=== PATIENT | female | born 1970 | race Two or more races ===

== ENCOUNTER 2024-04-13 12:25 | Emergency (ER) | payer MEDICAID, SELFPAY ==
[2024-04-13 12:28] VITALS: BMI 32.9
[2024-04-13 13:04] VITALS: BP 152/93; PULSE 107; RESP 18; TEMP 36.6; O2SAT 97; BMI 30.7
--- NOTE | 2024-04-13 13:05 | XR_ITS ---
Examination: Duplex scan of the lower extremity, unilateral left complete Date and time of exam: April 13, 2024 1342 hours INDICATIONS: Left leg pain 2 months worse the last 2 days Technique: Duplex scan of the extremity veins using B-mode/grayscale imaging and Doppler spectral analysis and color flow Attention is directed to internal echogenicity, compression and augmentation involving these veins, color flow assessment, spectral analysis Findings: Major deep venous structures in the extremity demonstrate normal course and caliber. There is no evidence of deep vein thrombosis. Normal color flow and spectral analysis Impression: Negative for DVT..
--- NOTE | 2024-04-13 13:05 | XR_ITS ---
Examination: Knee, left 3 views Technique: Knee AP, lateral, oblique 3 views Date and time of exam: April 13, 2024 1331 hours INDICATIONS: Left knee pain beginning 2 weeks ago. FINDINGS: Moderate osteopenia Mild to moderate narrowing medial joint space left knee Mild osteoarthritis patellofemoral joint No fracture IMPRESSION: Mild to moderate narrowing medial joint space
--- NOTE | 2024-04-13 14:11 | EDNOTE_ITS ---
<Statement entered by Rebecca Momin MD - 04/15/24 15:25> As co-signing physician, I was present and available for consult prn. I concur with the plan and care as documented by the midlevel provider. ED Extremity Problem RME/HPI General Chief complaint: Extremity Problem,Nontraumatic Stated complaint: SENT BY PMD FOR US Time Seen by Provider: 04/13/24 13:04 Arrival date/time: 04/13/24 12:25 53-year-old female presents emergency department today complains of left knee pain and calf pain ongoing for the last couple of weeks patient was seen by PCP and referred to the ER for ultrasound to rule out DVT Limitations: no limitations Related Data Previous Rx's ?Medication ?Instructions ?Recorded ciprofloxacin HCl 500 mg tablet 500 mg PO BID #14 tabs 02/20/21 dicyclomine 20 mg tablet 20 mg PO BID #20 tabs 02/20/21 metronidazole 500 mg tablet 500 mg PO BID #14 tabs 02/20/21 ibuprofen 800 mg tablet 800 mg PO TID PRN pain #30 tabs 04/13/24 Allergies Allergy/AdvReac Type Severity Reaction Status Date / Time No Known Allergies Allergy Verified 02/20/21 10:35 Review of Systems Review of Systems Systems Reviewed: All systems reviewed, normal except as documented Constitutional Constitutional: Reports system reviewed and no additional complaints, except as documented, Denies fever(s) and Denies headache(s) Eyes Eyes: Reports system reviewed and no additional complaints, except as documented and Denies blurry vision ENT Ears, Nose, Mouth, and Throat: Reports system reviewed and no additional complaints, except as documented, Denies headache(s), Denies nasal congestion and Denies nasal discharge Cardiovascular Cardiovascular: Reports system reviewed and no additional complaints, except as documented, Denies chest pain and Denies dyspnea Respiratory Respiratory: Reports system reviewed and no additional complaints, except as documented, Denies chest congestion, Denies cough and Denies dyspnea Gastrointestinal Gastrointestinal: Reports system reviewed and no additional complaints, except as documented and Denies abdominal pain Musculoskeletal Musculoskeletal: Reports system reviewed and no additional complaints, except as documented, Reports arthralgias, Denies joint swelling, Denies numbness, Reports stiffness and Denies tingling Integumentary/Breasts Skin/Breast: Reports system reviewed and no additional complaints, except as documented and Denies rash Neurologic Neurologic: Reports system reviewed and no additional complaints, except as documented, Reports as per HPI, Denies headache(s), Denies numbness and Denies tingling Past Medical History Past Medical History NEUROLOGIC: Negative Neurological Disorders CARDIAC: Negative Cardiac Disorders ED Exam General Limitations: Present no limitations General appearance: Present alert and in no apparent distress Head Head exam: Present atraumatic Eye Eye exam: Present normal appearance, PERRL and EOMI ENT ENT exam: Present normal exam, normal oropharynx and mucous membranes moist Neck Neck exam: Present normal inspection, full ROM and trachea midline Chest Chest inspection: Present normal inspection and symmetric chest wall rise Respiratory Respiratory exam: Present normal lung sounds bilaterally Cardiovascular Cardiovascular exam: Present regular rate, normal rhythm and normal heart sounds Abdominal Exam Abdominal exam: Present soft and normal bowel sounds; Absent distention, tenderness, guarding, rebound or rigidity Extremities Exam Extremities exam: Present normal inspection and full ROM Back Exam Back exam: Present normal inspection and full ROM Neurological Exam Neurological exam: Present alert, oriented X3 and CN II-XII intact Psychiatric Psychiatric exam: Present normal affect and normal mood Skin Skin exam: Present warm, dry, intact and normal color Course Quality Measures none Orders Category Date Time Status US venous doppler LE LT Stat Exams 04/13/24 13:05 Completed XR knee LT 3V Stat Exams 04/13/24 13:05 Completed Vital Signs Vital signs: Vital Signs Temperature 97.9 F 04/13/24 13:04 Pulse Rate 107 H 04/13/24 13:04 Respiratory Rate 18 04/13/24 13:04 Blood Pressure 152/93 H 04/13/24 13:04 Pulse Oximetry (%) 97 04/13/24 13:04 Oxygen Delivery Method Room Air 04/13/24 13:04 O2 saturation 97% room air within normal limits Extremity Problem MDM Narrative MDM Narrative:: 53-year-old female presents emerged part today complains of left knee pain and calf pain ongoing for the last couple of weeks patient was seen by PCP and referred to the ER for ultrasound to rule out DVT X-ray as well as ultrasound obtained no acute emergent findings noted Clinically patient does not have a DVT patient has no redness warmth or swelling Patient discharged home in no distress to follow-up with primary care doctor in the next 24 to 48 hours and for any worsening symptoms to return to the ER immediately Patient data External records reviewed:: [facility] previous records Clinical information provided by:: patient Social determinants that could affect healthcare access:: none Patient has the following chronic illnesses:: None How is presenting disease/condition affected by chronic disease/condition?: no chronic disease Evaluation data The following diagnostics were reviewed and interpreted by me:: radiology exam(s) Lab and/or radiology exams considered but not ordered:: Radiology obtain Interpretation Summary: Reviewed by me Medications / Prescriptions Medications or Prescriptions considered but not ordered:: Given Medication administrations:: Given Consultations Consultation(s) initiated? (list below): No Diagnosis Extremity Problem Differential Diagnosis: other (Knee sprain, knee fracture) Most likely diagnosis given after review of the tests above:: Knee sprain Admission Indicated Admission indicated?: not indicated Explain why admission is indicated or not indicated:: No criteria Admission Request Was there a request for admission?: No Disposition Plan Disposition Plan: Discharge Discharge Attestation Discharge Attestation: The patient and all family members were given an opportunity to ask questions and understood the discharge instructions. Discharge instructions specifically effects, indications for sooner follow up or return to the emergency department, and the expected course of current diagnosis. Patient condition: Stable Discharge Plan Plan Patient Disposition: HOME (Self Care) Disposition Comment: Stable Prescriptions/Referrals Prescriptions/Med Rec: New ibuprofen 800 mg tablet 800 mg PO TID PRN (Reason: pain) Qty: 30 0RF No Action ciprofloxacin HCl 500 mg tablet 500 mg PO BID Qty: 14 0RF metronidazole 500 mg tablet 500 mg PO BID Qty: 14 0RF dicyclomine 20 mg tablet 20 mg PO BID Qty: 20 0RF Referrals: Nii Lee MD [Primary Care Provider] - 04/14/24 Problem List Clinical Impression: Osteoarthritis of left knee Patient/Caregiver Discharge Instructions Education Materials: ED Osteoarthritis Additional Instructions: Please follow up with your primary care doctor in the next 24-48hrs for any worsening symptoms return here immediately Print Language: Norwegian Stand Alone Forms: Elsie Award Info., Work/School Release, Patient Portal Info Letter PA/CLIENT EXPERIENCE ADMINISTRATOR Supervising Physician PA/CLIENT EXPERIENCE ADMINISTRATOR Supervising Physician: Dr. MOMIN
== END 2024-04-13 15:04 | disposition home or self-care (01) ==
PROVIDERS: Emergency Provider Emergency Medicine; PCP Internal Medicine
DX: M17.12 Unilateral primary osteoarthritis, left knee (principal)
CPT/HCPCS: 73562; 93971; 99284

== ENCOUNTER → 2024-06-10 | Outpatient (CLI) | payer MEDICAID, SELFPAY ==
--- NOTE | 2024-06-10 12:40 | XR_ITS ---
Examination: Bone densitometry Date and time of exam:June 10, 2024, 12:35 PM Indications: Hysterectomy age 45 Technique: Lumbar spine and hip total bone mineralization values of an calculated. Peak reference and age match control results have been displayed. Findings: Lumbar spine total bone mineralization is0.876 gm/cm2. This is 1.6 standard deviations below peak reference. This is 0.7 standard deviations below age-matched controls. Hip total bone mineralization is 0.831 gm/cm2 This is 1.0 standard deviations below peak reference. This is 0.5 standard deviations below age-matched controls Impression: There is osteopenia based on lumbar spine measurements. There is normal mineralization based on hip measurements
== END | disposition home or self-care (01) ==
LOC: CDIM 11:56
PROVIDERS: Referring Provider Internal Medicine; Visit Provider Internal Medicine
DX: M85.88 Other specified disorders of bone density and structure, other site (principal)
CPT/HCPCS: 77080

== ENCOUNTER → 2024-06-17 | Outpatient (CLI) | payer MEDICAID, SELFPAY ==
--- NOTE | 2024-06-17 10:00 | XR_ITS ---
Exam: MRI knee without contrast, left Date and time of exam: June 17, 2024 1032 hours INDICATIONS: Twisting injury to the knee 2 months ago, knee pain swelling joint clicking instability Technique: Multiple axial, coronal, and sagittal sections on the knee have been obtained. T2-Weighted sagittal, fat-suppressed images, TR 3,500, TE 62, T2 weighted coronal fat-saturated images, TR 3,500, TE 62 Proton density sagittal sections, TR 1800, TE 31. T-1 weighted coronal images, TR 524, TE 13.0 Findings: Medial meniscus anterior horn intact. Medial meniscus, body complex peripheral tears. Posterior horn medial meniscus peripheral horizontal linear tear. Lateral meniscus anterior horn is intact Lateral meniscus, body is intact Posterior horn lateral meniscus is intact Anterior cruciate ligament high-grade sprain. Posterior cruciate ligament appears intact. Knee effusion is moderate. Quadriceps and patellar tendons appear intact. There is no evidence of tendinosis. Inflammatory change or fracture of Hoffa's fat pad is not seen. Medial patellar facet demonstrates moderate thinning. Lateral patellar facet cartilage demonstrates moderate thinning. Trochlear cartilage demonstrates moderate thinning. Marrow signal increased signal in the proximal medial tibia. Medial collateral ligament appears intact. No meniscocapsular separation is seen. Illiotibial band and fibular collateral ligament are intact. Biceps femoris tendons appear intact. Medial femoral condylar articular cartilage demonstrates moderate thinning. Lateral femoral condylar articular cartilage demonstratesmoderate thinning. Tibial plateau cartilage demonstrates moderate thinning. Impression: Medial meniscus tears as above High-grade sprain anterior cruciate ligament
== END | disposition home or self-care (01) ==
PROVIDERS: PCP Internal Medicine; Referring Provider Internal Medicine; Visit Provider Internal Medicine
DX: S83.242A Other tear of medial meniscus, current injury, left knee, initial encounter (principal); X50.1XXA Overexertion from prolonged static or awkward postures, initial encounter
CPT/HCPCS: 73721

== ENCOUNTER 2024-07-26 14:06 | Outpatient (RCR) | payer MEDICAID, SELFPAY ==
--- NOTE | 2024-07-26 14:43 | PT.OIERPT ---
PT OP Initial Eval Patient Information Outpatient Physical Therapy Treatment Date: 07/26/24 Visit Reasons: Chronic left knee Medical Diagnosis: M25.562 M85.80 Treatment Dx #1: L knee pain Start of Care: 07/26/24 Date of Onset: February 2024 Smoking Status Smoking Status: Never smoker Initial Assessment Subjective: Pt is 53 yr old equatorial guinean speaking female who reports L knee pain insidious onset in February. Since then the pain has increased and she controls with pain meds. Without meds she wakes up in a lot of pain and has difficulty walking. She can do HH chores for short periods and rests when it hurts. She is working in the bunch and is limited with climbing the ladder. PMH: HTN Imaging: MRI Medial meniscus, body complex peripheral tears. Posterior horn medial meniscus peripheral horizontal linear tear. Pt goal: to get rid of the pain Objective: L knee ArOM: Extension: full Flexion: 120 deg SLR: 45 deg Strength: Quads: 4-/5 HS: 4-/5 Yvonne's: positive Anterior drawer: negative Varus/valgus: mild gapping both ways Bounce home test: positive Assessment: Pt presents with knee rotation sensitivity consistent with MRI results of medial meniscus tears. Pt may benefit from skilled therapy and has poor/fair rehab potential to meet goals. Short Term and Skilled Nursing Goals 1. Ind with HEP ? 2. Improved HH chore tolerance to 30 mins with <=3/10 L knee pain ? 3. Improved HS and quad strength to 4/5 Treatment Plan ? 1. Manual therapy ? 2. Therex ? 3. Modalities as indicated, moist heat, ice, estim Frequency and Duration: 2x a week for 4 trial visits. If progressing with goals continue up to 12. If not, reassess Certification Dates: 07/26/24 to 10/23/24 Procedure Charges OP PT Eval Mod Complex 30 minutes: Yes
== END 2024-07-28 23:59 | disposition home or self-care (01) ==
LOC: CPTX 14:06
PROVIDERS: PCP Internal Medicine; Referring Provider Internal Medicine; Visit Provider Internal Medicine
DX: M25.562 Pain in left knee (principal); R26.2 Difficulty in walking, not elsewhere classified; M85.80 Other specified disorders of bone density and structure, unspecified site; I10 Essential (primary) hypertension
CPT/HCPCS: 97162

== ENCOUNTER 2024-07-29 08:00 | Outpatient (AMB) | payer MEDICAID, SELFPAY ==
--- NOTE | 2024-07-29 08:15 | ORTHONT_ITS ---
Vital signs 07/29/24 08:16 Height 1.65 m Height Method Stated Weight 86.296 kg Weight Measurement Method Standing Scale BMI 31.6 BP 145/94 H Blood Pressure Source Automatic Cuff Blood Pressure Location Left Upper Arm Position Sitting Respiration 18 Pulse 88 Pulse Source Monitor Temp 97.3 F Temp Source Temporal Artery Scan Pulse Oximetry (%) 97 Oxygen Delivery Method Room Air Med/Allergies Allergies & Medications Allergies No Known Allergies Allergy (Verified 07/29/24 08:16) Medication Reconciliation ciprofloxacin HCl 500 mg tablet 500 mg PO BID #14 tabs 02/20/21 [Rx Confirmed 07/29/24] dicyclomine 20 mg tablet 20 mg PO BID #20 tabs 02/20/21 [Rx Confirmed 07/29/24] metronidazole 500 mg tablet 500 mg PO BID #14 tabs 02/20/21 [Rx Confirmed 07/29/24] ibuprofen 800 mg tablet 800 mg PO TID PRN pain #30 tabs 04/13/24 [Rx Confirmed 07/29/24] tramadol 25 mg tablet 25 mg PO Q6H PRN 07/29/24 [History Confirmed 07/29/24] Exam Exam Patient is in no acute distress and is cooperative with the examination today. Breathing is nonlabored. Patient has a normal mood and affect. Bilateral extremities were evaluated and demonstrates sensation intact to light touch. Palpable pedal pulses are present. No significant edema is present. Bilateral hips were examined. The patient has no pain with log roll of the hips. Internal rotation to 30 degrees and external rotation to 30 degrees is painless. Negative FADIR. Right knee was examined today. The right knee is in reasonable alignment. Range of motion from 0-120 degrees. Knee is stable to varus and valgus as well as AP translation with <5mm. Patient has a negative McMurrays. There is no pain with patellofemoral compression and no crepitus noted. The knee is nontender to p alpation. Left knee was examined today. The left knee is in varus alignment. Range of motion from 0-115 degrees. Knee is stable to varus and valgus as well as AP translation with <5mm. Patient has a negative McMurrays. There is no pain with patellofemoral compression and no crepitus noted. The knee is tender to palpation medially. Assessment and Plan Problem List (1) Arthritis of left knee: Status: Acute Plan: Patient is a 53-year-old female with left knee pain and left knee arthritis. We discussed different treatment options. We will start with a weightbearing x-ray. We will likely do injections at the next visit should she not. Relief. She will start physical therapy and we will see how it goes. Office Procedures GNS Level of Care Nursing/Assessment Patient Status: Initial/New Patient Nursing Assessment/Reassesment: Medication Reconciliation, Update PMH in EMR and Vital Signs Coordination of Care: Complex Care and Chronic Disease 1-5, Education Complex Pt/Fam, Consent,records obtained, informed consent, 1 Ins Authorization, Lab and Imaging orders, Results/Orders obtained and Staff clarify orders Special Needs: Language special needs New Patient Charge New Patient Point Assignment: 1124 New Patient Point Charge: DIRECTOR OF [employer] Level 4 ([id number]) MA Intake Visit Data Collection New Patient or Established: Established Patient (seen at [facility] within 3 years) Reason for Visit:: MENISCUS TEAR LEFT KNEE Seen by Clinical Staff ONLY (RN/MA): No Water/Wastewater Project Engineer Required: Yes PCP or OBGYN visit in last 3 months: Yes Hx Now: No Do You Feel Safe at Home: Yes Authorities Contacted: N/A Questionairres Past Medical History Past Medical History Have you ever been diagnosed with any of the following: Cardiology Problems Hypercholesterolemia: Yes Congestive Heart Failure: No Hypertension: Yes Respiratory Problems Chronic Obstructive Pulmonary Disease (COPD): No Asthma: No Smoking: No Smoking Exposure: No Genital/Urinary Problems Renal Disease: No Endocrine Problems Diabetes Mellitus Type 1: No Diabetes Mellitus Type 2: No Blood Problems Sickle Cell Disease: No Subjective Visit Visit for: new patient and knee Immunization / Flu Flu Vaccine in the Last 12 Months: Yes Flu Vaccine Exclusion Criteria: Already Received History of Present Illness Chief complaint: Left knee pain Date of injury / onset of symptoms: 05/2024 Cherie has been having 3 months of knee pain On the left. The pain has improved with anti-inflammatories. She never had any injections or physical therapy. That the knee pain came out of the blue. She did have an MRI and non weightbearing x-rays in the past She is starting physical therapy in 1 week Pain Pain level (0-10): 7 Pain duration: WITH MOVEMENT Pain location: inside (medial) and anterior Pain quality: dull and aching Pain timing: increases with activity Associated signs & symptoms: numbness and weakness Ambulatory data Ambulatory device: none Treatments Improvement with previous injections: No Improvement with PT: No Improvement with NSAIDS: n/a Review of Systems Review of Systems: All systems negative unless otherwise noted in HPI.
[2024-07-29 08:16] VITALS: BP 145/94; PULSE 88; RESP 18; TEMP 36.3; O2SAT 97; BMI 31.6
--- NOTE | 2024-07-29 08:25 | XR_ITS ---
Examination: Bilateral knees 2 views Standing right knee left knee 2 views Bilateral axial knees single view TECHNIQUE: Bilateral AP knees standing single view, bilateral PA knees standing single view flexion Standing right lateral knee left lateral knee 2 views Bilateral axial knees single view total 4 views Exam date and time: July 29, 2024 0836 hours Comparison April 13, 2024 INDICATIONS: Knee pain beginning February 2025 FINDINGS: Advanced narrowing medial joint space right knee Moderate narrowing medial joint space left knee Moderate bilateral osteoarthritis patellofemoral joints IMPRESSION: Advanced narrowing medial joint space right knee Moderate narrowing medial joint space left knee Moderate bilateral osteoarthritis patellofemoral joints
== END 2024-07-29 08:31 | disposition home or self-care (01) ==
PROVIDERS: PCP Internal Medicine; Referring Provider Internal Medicine; Supervising Provider Orthopaedic Surgery Adult Reconstructive Orthopaedic Surgery; Visit Provider Orthopaedic Surgery Adult Reconstructive Orthopaedic Surgery
DX: M17.0 Bilateral primary osteoarthritis of knee (principal); M25.562 Pain in left knee; I10 Essential (primary) hypertension; E78.00 Pure hypercholesterolemia, unspecified
CPT/HCPCS: 73564; 99204; G0463

== ENCOUNTER 2024-08-02 09:48 | Outpatient (RCR) | payer MEDICAID, SELFPAY ==
--- NOTE | 2024-08-02 10:56 | PT.ODAYNRPT ---
PT Outpatient Daily Note OP Daily Note Outpatient Physical Therapy Treatment Date: 08/02/24 Visit Reasons: Chronic left knee Subjective: Same as time of evaluation Objective: See F/S for therex Assessment: Min/mod TTP of L knee with therex Plan: Continue per POC Length of Time (minutes) of Treatment: 30 Minutes Procedure Charges Therapeutic Exercise 30 minutes: Yes
== END 2024-08-28 23:59 | disposition home or self-care (01) ==
LOC: CPTX 09:48
PROVIDERS: PCP Internal Medicine; Referring Provider Internal Medicine; Visit Provider Internal Medicine
DX: M25.562 Pain in left knee (principal); R26.2 Difficulty in walking, not elsewhere classified; M85.80 Other specified disorders of bone density and structure, unspecified site; I10 Essential (primary) hypertension
CPT/HCPCS: 97110

== ENCOUNTER 2024-08-17 09:49 | Outpatient (AMB) | payer MEDICAID, SELFPAY ==
--- NOTE | 2024-08-17 10:26 | ORTHONT_ITS ---
Vital signs 08/17/24 10:27 Height 1.65 m Height Method Stated Weight 87.09 kg Weight Measurement Method Standing Scale BMI 31.9 BP 137/86 H Blood Pressure Source Automatic Cuff Blood Pressure Location Right Upper Arm Position Sitting Respiration 18 Pulse 101 H Pulse Source Monitor Temp 96.9 F Temp Source Temporal Artery Scan Pulse Oximetry (%) 97 Oxygen Delivery Method Room Air Med/Allergies Allergies & Medications Allergies No Known Allergies Allergy (Verified 08/17/24 10:28) Medication Reconciliation metronidazole 500 mg tablet 500 mg PO BID #14 tabs 02/20/21 [Rx Confirmed 08/17] ibuprofen 800 mg tablet 800 mg PO TID PRN pain #30 tabs 04/13/24 [Rx Confirmed 08/17/24] tramadol 25 mg tablet 25 mg PO Q6H PRN 07/29/24 [History Confirmed 08/17/24] meloxicam 7.5 mg tablet 7.5 mg PO QDAY #45 tabs 08/17/24 [Rx] Exam Exam Patient is in no acute distress and is cooperative with the examination today. Breathing is nonlabored. Patient has a normal mood and affect. Bilateral extremities were evaluated and demonstrates sensation intact to light touch. Palpable pedal pulses are present. No significant edema is present. Bilateral hips were examined. The patient has no pain with log roll of the hips. Internal rotation to 30 degrees and external rotation to 30 degrees is painless. Negative FADIR. Right knee was examined today. The right knee is in reasonable alignment. Range of motion from 0-120 degrees. Knee is stable to varus and valgus as well as AP translation with <5mm. Patient has a negative McMurrays. There is no pain with patellofemoral compression and no crepitus noted. The knee is nontender to palpation. Left knee was examined today. The left knee is in varus alignment. Range of motion from 0-115 degrees. Knee is stable to varus and valgus as well as AP translation with <5mm. Patient has a negative McMurrays. There is no pain with patellofemoral compression and no crepitus noted. The knee is tender to palpation medially. Assessment and Plan Problem List (1) Arthritis of left knee: Status: Acute Plan: Patient is a 53-year-old female with left knee pain and left knee arthritis. She would like a left knee injection today We will likely do injections at the next visit should she not. Relief. She will start physical therapy and we will see how it goes. Recommend knee cortisone injection as patient would like to proceed with conservative treatment at this time. The risks and benefits of the procedure were reviewed with the patient and patient gave verbal consent to continue with the procedure. Procedure: performed by Dr. Albright Using sterile technique the left knee was thoroughly prepped with alcohol, and approximately 1 cc of Kenalog 40 mg/mL and 4 cc of 1% lidocaine was injected without resistance into the medial tibial femoral joint space. The patient tolerated the procedure. Office Procedures GNS Level of Care Nursing/Assessment Patient Status: Established Patient Nursing Assessment/Reassesment: Medication Reconciliation, Update PMH in EMR and Vital Signs Coordination of Care: Complex Care and Chronic Disease 1-5, Education Complex Pt/Fam, Consent,records obtained, informed consent, 1 Ins Authorization, Results/Orders obtained and Staff clarify orders Established Patient Charge Established Patient Point Assignment: 110 Established Patient Point Charge: EP Level 3 (80-115) Surgical Proc/IM SQ injection Major Surgical Procedure: Yes (KNEE INJECTION ) Medication Given Medication Given Medication Given: Yes Documented Dose Given: 4 Route: Infiitration Medication Given Medication Given Medication Given: Yes Documented Dose Given: 1 Route: Infiitration Office Meds Xylocaine 10 mg/mL (1 %) injection solution Performing Provider: Minor Albright MD Performing Location: [facility] Administered by: Minor Albright MD on 08/17/24 11:23 Dose Route Admin Location Dispensed Lot Number Expiration Date [facility] [employer] 20 mL Infiltration KNEE 20 mL [id number] 11/30/27 26695-731-73 [facility] triamcinolone acetonide 40 mg/mL suspension for injection Performing Provider: Minor Albright MD Performing Location: [facility] Administered by: Minor Albright MD on 08/17/24 11:23 Dose Route Admin Location Dispensed Lot Number Expiration Date 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 PCP or OBGYN visit in last 3 months: Yes Hx Now: No Do You Feel Safe at Home: Yes Authorities Contacted: N/A Questionairres Past Medical History Past Medical History Have you ever been diagnosed with any of the following: Cardiology Problems Hypercholesterolemia: Yes Congestive Heart Failure: No Hypertension: Yes Respiratory Problems Chronic Obstructive Pulmonary Disease (COPD): No Asthma: No Smoking: No Smoking Exposure: No Genital/Urinary Problems Renal Disease: No Endocrine Problems Diabetes Mellitus Type 1: No Diabetes Mellitus Type 2: No Blood Problems Sickle Cell Disease: No Subjective Visit Visit for: follow up visit, knee and x-rays Immunization / Flu Flu Vaccine in the Last 12 Months: Yes Flu Vaccine Exclusion Criteria: Already Received History of Present Illness Chief complaint: BILATERAL KNEE PAIN Date of injury / onset of symptoms: 05/2024 Cherie has been having 3 months of knee pain On the left. The pain has improved with anti-inflammatories. She never had any injections or physical therapy. That the knee pain came out of the blue. She did have an MRI and nonweightbearing x-rays in the past She is starting physical therapy in 1 week Personal History Red flag PMH: BMI BMI Counceling provided: Yes Pain Pain level (0-10): 6 Pain duration: ALL DAY Pain location: inside (medial), outside (lateral), anterior and posterior Pain quality: sharp, dull, aching and burning Pain timing: increases with activity Associated signs & symptoms: none Ambulatory data Ambulatory device: none Treatments Improvement with previous injections: No Improvement with PT: No Improvement with NSAIDS: no Review of Systems Review of Systems: All systems negative unless otherwise noted in HPI.
[2024-08-17 10:27] VITALS: BP 137/86; PULSE 101; RESP 18; TEMP 36.1; O2SAT 97; BMI 31.9
== END 2024-08-17 10:46 | disposition home or self-care (01) ==
LOC: HODSRG 09:49
PROVIDERS: PCP Internal Medicine; Referring Provider Internal Medicine; Supervising Provider Orthopaedic Surgery Adult Reconstructive Orthopaedic Surgery; Visit Provider Orthopaedic Surgery Adult Reconstructive Orthopaedic Surgery
DX: M17.12 Unilateral primary osteoarthritis, left knee (principal); I10 Essential (primary) hypertension; E78.00 Pure hypercholesterolemia, unspecified; M25.562 Pain in left knee
CPT/HCPCS: 20610; 99213; J3301; J3490; G0463

== ENCOUNTER 2024-09-03 10:20 | Outpatient (AMB) | payer MEDICAID, SELFPAY ==
[2024-09-03 10:48] VITALS: BP 139/95; PULSE 90; RESP 18; TEMP 36.6; O2SAT 97; BMI 31.6
--- NOTE | 2024-09-03 10:48 | ORTHONT_ITS ---
Vital signs 09/03/24 10:48 Height 1.65 m Height Method Stated Weight 86.183 kg Weight Measurement Method Standing Scale BMI 31.6 BP 139/95 H Blood Pressure Source Automatic Cuff Blood Pressure Location Right Upper Arm Position Sitting Respiration 18 Pulse 90 Pulse Source Monitor Temp 97.8 F Temp Source Temporal Artery Scan Pulse Oximetry (%) 97 Oxygen Delivery Method Room Air Med/Allergies Allergies & Medications Allergies No Known Allergies Allergy (Verified 09/03/24 10:49) Medication Reconciliation metronidazole 500 mg tablet 500 mg PO BID #14 tabs 02/20/21 [Rx Confirmed 09/03/24] ibuprofen 800 mg tablet 800 mg PO TID PRN pain #30 tabs 04/13/24 [Rx Confirmed 09/03/24] tramadol 25 mg tablet 25 mg PO Q6H PRN 07/29/24 [History Confirmed 09/03/24] meloxicam 7.5 mg tablet 7.5 mg PO QDAY #45 tabs 08/17/24 [Rx Confirmed 09/03/24] Exam Exam Patient is in no acute distress and is cooperative with the examination today. Breathing is nonlabored. Patient has a normal mood and affect. Bilateral extremities were evaluated and demonstrates sensation intact to light touch. Palpable pedal pulses are present. No significant edema is present. Bilateral hips were examined. The patient has no pain with log roll of the hips. Internal rotation to 30 degrees and external rotation to 30 degrees is painless. Negative FADIR. Right knee was examined today. The right knee is in reasonable alignment. Range of motion from 0-120 degrees. Knee is stable to varus and valgus as well as AP translation with <5mm. Patient has a negative McMurrays. There is no pain with patellofemoral compression and no crepitus noted. The knee is nontender to palpation. Left knee was examined today. The left knee is in varus alignment. Range of motion from 0-115 degrees. Knee is stable to varus and valgus as well as AP translation with <5mm. Patient has a negative McMurrays. There is no pain with patellofemoral compression and no crepitus noted. The knee is tender to palpation medially. X-rays demonstrate moderate bilateral joint space narrowing medially. There is moderate arthritis and osteophytes Assessment and Plan Problem List (1) Arthritis of left knee: Status: Acute Plan: Patient is a 53-year-old female with left knee pain and left knee arthritis. She is doing well the left knee cortisone injection would like a right knee cortisone injection today. Recommend knee cortisone injection as patient would like to proceed with conservative treatment at this time. The risks and benefits of the procedure were reviewed with the patient and patient gave verbal consent to continue with the procedure. Procedure: performed by Dr. Albright Using sterile technique the Right knee was thoroughly prepped with alcohol, and approximately 1 cc of Kenalog 40 mg/mL and 4 cc of 1% lidocaine was injected without resistance into the medial tibial femoral joint space. The patient tolerated the procedure. Office Procedures GNS Level of Care Nursing/Assessment Patient Status: Established Patient Nursing Assessment/Reassesment: Medication Reconciliation, Update PMH in EMR and Vital Signs Coordination of Care: Complex Care and Chronic Disease 1-5, Education Complex Pt/Fam, Consent,records obtained, informed consent, Results/Orders obtained and Staff clarify orders Special Needs: Language special needs (BRAZILIAN ) Established Patient Charge Established Patient Point Assignment: 95 Established Patient Point Charge: EP Level 3 (80-115) Surgical Proc/IM SQ injection Major Surgical Procedure: Yes (KNEE INJECTION) Medication Given Medication Given Medication Given: Yes Documented Dose Given: 4 Route: Infiitration Medication Given Medication Given Medication Given: Yes Documented Dose Given: 1 Route: Infiitration Office Meds Xylocaine 10 mg/mL (1 %) injection solution Performing Provider: Minor Albright MD Performing Location: [facility] Administered by: Minor Albright MD on 09/03/24 11:18 Dose Route Admin Location Dispensed Lot Number Expiration Date [facility] [employer] 20 mL Infiltration 20 mL [id number] 07/29/27 32009-681-16 [facility] triamcinolone acetonide 40 mg/mL suspension for injection Performing Provider: Minor Albright MD Performing Location: 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 PCP or OBGYN visit in last 3 months: Yes Hx Now: No Do You Feel Safe at Home: Yes Authorities Contacted: N/A Questionairres Past Medical History Past Medical History Have you ever been diagnosed with any of the following: Cardiology Problems Hypercholesterolemia: Yes Congestive Heart Failure: No Hypertension: Yes Respiratory Problems Chronic Obstructive Pulmonary Disease (COPD): No Asthma: No Smoking: No Smoking Exposure: No Genital/Urinary Problems Renal Disease: No Endocrine Problems Diabetes Mellitus Type 1: No Diabetes Mellitus Type 2: No Blood Problems Sickle Cell Disease: No Subjective Visit Visit for: knee (RIGHT KNEE ) Immunization / Flu Flu Vaccine in the Last 12 Months: Yes Flu Vaccine Exclusion Criteria: Already Received History of Present Illness Chief complaint: BILATERAL KNEE PAIN Date of injury / onset of symptoms: 05/2024 Cherie has been having 3 months of knee pain On the left. The pain has improved with anti-inflammatories. She never had any injections or physical therapy. She is doing well with the last injection on the left And would like a right knee injection today Personal History Red flag PMH: none BMI Counceling provided: Yes Pain Pain level (0-10): 6 Pain duration: 05/2024 Pain location: anterior Pain quality: aching Pain timing: night and increases with activity Associated signs & symptoms: weakness and stiffness Ambulatory data Ambulatory device: none Walking distance (minutes): 10 Treatments Number of previous injections: 1 Improvement with previous injections: No Number of Physical Therapy sessions: 2 Improvement with PT: No Improvement with NSAIDS: n/a Review of Systems Review of Systems: All systems negative unless otherwise noted in HPI.
== END 2024-09-03 11:22 | disposition home or self-care (01) ==
LOC: HODSRG 10:20
PROVIDERS: PCP Internal Medicine; Referring Provider Internal Medicine; Supervising Provider Orthopaedic Surgery Adult Reconstructive Orthopaedic Surgery; Visit Provider Orthopaedic Surgery Adult Reconstructive Orthopaedic Surgery
DX: M17.12 Unilateral primary osteoarthritis, left knee (principal); M25.561 Pain in right knee; M25.562 Pain in left knee; I10 Essential (primary) hypertension; E78.00 Pure hypercholesterolemia, unspecified
CPT/HCPCS: 20610; 99213; J3301; J3490; G0463

== ENCOUNTER 2024-11-19 10:04 | Outpatient (AMB) | payer MEDICAID, SELFPAY ==
--- NOTE | 2024-11-19 10:22 | PD.ORTHCLVIS ---
Vital signs 11/19/24 10:43 Height 1.65 m Height Method Measured Weight 88.649 kg Weight Measurement Method Standing Scale BMI 32.5 BP 131/92 H Blood Pressure Source Automatic Cuff Blood Pressure Location Left Upper Arm Position Sitting Respiration 16 Pulse 110 H Pulse Source Monitor Temp 97.7 F Temp Source Temporal Artery Scan Pulse Oximetry (%) 93 L Oxygen Delivery Method Room Air Med/Allergies Allergies & Medications Allergies No Known Allergies Allergy (Verified 11/19/24 10:44) Medication Reconciliation metronidazole 500 mg tablet 500 mg PO BID #14 tabs 02/20/21 [Rx Confirmed 11/19/24] ibuprofen 800 mg tablet 800 mg PO TID PRN pain #30 tabs 04/13/24 [Rx Confirmed 11/19/24] tramadol 25 mg tablet 25 mg PO Q6H PRN 07/29/24 [History Confirmed 11/19/24] meloxicam 7.5 mg tablet 7.5 mg PO QDAY #45 tabs 08/17/24 [Rx Confirmed 11/19/24] Exam Exam Patient is in no acute distress and is cooperative with the examination today. Breathing is nonlabored. Patient has a normal mood and affect. Bilateral extremities were evaluated and demonstrates sensation intact to light touch. Palpable pedal pulses are present. No significant edema is present. Bilateral hips were examined. The patient has no pain with log roll of the hips. Internal rotation to 30 degrees and external rotation to 30 degrees is painless. Negative FADIR. Right knee was examined today. The right knee is in reasonable alignment. Range of motion from 0-120 degrees. Knee is stable to varus and valgus as well as AP translation with <5mm. Patient has a negative McMurrays. There is no pain with patellofemoral compression and no crepitus noted. The knee is nontender to palpation. Left knee was examined today. The left knee is in varus alignment. Range of motion from 0-115 degrees. Knee is stable to varus and valgus as well as AP translation with <5mm. Patient has a negative McMurrays. There is no pain with patellofemoral compression and no crepitus noted. The knee is tender to palpation medially. X-rays demonstrate moderate bilateral joint space narrowing medially. There is moderate arthritis and osteophytes Assessment and Plan Problem List (1) Arthritis of left knee: Status: Acute Plan: Patient is a 53-year-old female with left knee pain and left knee arthritis. She is doing well the left knee cortisone injection would like a right knee cortisone injection today. Recommend knee cortisone injection as patient would like to proceed with conservative treatment at this time. The risks and benefits of the procedure were reviewed with the patient and patient gave verbal consent to continue with the procedure. Procedure: performed by Dr. Albright Using sterile technique the Right knee was thoroughly prepped with alcohol, and approximately 1 cc of Depo-Medrol 80mg/mL and 4 cc of 0.2% ropivacaine was injected without resistance into the medial tibial femoral joint space. The patient tolerated the procedure. Office Procedures GNS Level of Care Nursing/Assessment Patient Status: Established Patient Nursing Assessment/Reassesment: Medication Reconciliation, Orthostatic Vitals, Update PMH in EMR and Vital Signs Coordination of Care: Complex Care and Chronic Disease 1-5, Education Complex Pt/Fam, Consent,records obtained, informed consent, Results/Orders obtained and Staff clarify orders Special Needs: Language special needs Established Patient Charge Established Patient Point Assignment: 105 Established Patient Point Charge: EP Level 3 (80-115) Surgical Proc/IM SQ injection Major Surgical Procedure: Yes (KNEE INJECTION ) Medication Given Medication Given Medication Given: Yes Documented Dose Given: 1 Route: Infiitration Medication Given Medication Given Medication Given: Yes Documented Dose Given: 4 Route: Infiitration Office Meds methylprednisolone acetate 80 mg/mL suspension for injection Performing Provider: Minor Albright MD Performing Location: [facility] Administered by: Minor Albright MD on 11/19/24 10:45 Dose Route Admin Location Dispensed Lot Number Expiration Date [facility] [employer] 80 mg intra-articular KNEE 1 mL [id number] 08/28/26 [id number] [employer] ropivacaine (PF) 2 mg/mL (0.2 %) injection solution Performing Provider: Minor Albright MD Performing Location: [facility] Administered by: Minor Albright MD on 11/19/24 10:45 Dose Route Admin Location Dispensed Lot Number Expiration Date 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 PCP or OBGYN visit in last 3 months: Yes Hx Now: No Do You Feel Safe at Home: Yes Authorities Contacted: N/A Questionairres Past Medical History Past Medical History Have you ever been diagnosed with any of the following: Cardiology Problems Hypercholesterolemia: Yes Congestive Heart Failure: No Hypertension: Yes Respiratory Problems Chronic Obstructive Pulmonary Disease (COPD): No Asthma: No Smoking: No Smoking Exposure: No Genital/Urinary Problems Renal Disease: No Endocrine Problems Diabetes Mellitus Type 1: No Diabetes Mellitus Type 2: No Blood Problems Sickle Cell Disease: No Subjective Visit Visit for: knee (RIGHT KNEE ) Immunization / Flu Flu Vaccine in the Last 12 Months: Yes Flu Vaccine Exclusion Criteria: Already Received History of Present Illness Chief complaint: BILATERAL KNEE PAIN Date of injury / onset of symptoms: 05/2024 Cherie has been having 3 months of knee pain On the left. The pain has improved with anti-inflammatories. She never had any injections or physical therapy. She is doing well with the last injection on the right And would like a right knee injection today Personal History Red flag PMH: none BMI Counceling provided: Yes Pain Pain level (0-10): 6 Pain duration: 05/2024 Pain location: anterior Pain quality: aching Pain timing: night and increases with activity Associated signs & symptoms: weakness and stiffness Ambulatory data Ambulatory device: none Walking distance (minutes): 10 Treatments Number of previous injections: 1 Improvement with previous injections: No Number of Physical Therapy sessions: 2 Improvement with PT: No Improvement with NSAIDS: n/a Review of Systems Review of Systems: All systems negative unless otherwise noted in HPI.
[2024-11-19 10:43] VITALS: BP 131/92; PULSE 110; RESP 16; TEMP 36.5; O2SAT 93; BMI 32.5
== END 2024-11-19 11:02 | disposition home or self-care (01) ==
LOC: HODSRG 10:04
PROVIDERS: PCP Internal Medicine; Referring Provider Internal Medicine; Supervising Provider Orthopaedic Surgery Adult Reconstructive Orthopaedic Surgery; Visit Provider Orthopaedic Surgery Adult Reconstructive Orthopaedic Surgery
DX: M17.12 Unilateral primary osteoarthritis, left knee (principal); M25.562 Pain in left knee; I10 Essential (primary) hypertension; E78.00 Pure hypercholesterolemia, unspecified
CPT/HCPCS: 20610; 99213; J1010; J2795; G0463

== ENCOUNTER 2025-02-22 08:59 | Outpatient (AMB) | payer MEDICAID, SELFPAY ==
--- NOTE | 2025-02-22 09:37 | PD.ORTHCLVIS ---
Vital signs 02/22/25 09:38 Height 1.65 m Height Method Stated Weight 88.507 kg Weight Measurement Method Standing Scale BMI 32.5 BP 130/93 H Blood Pressure Source Automatic Cuff Blood Pressure Location Left Upper Arm Position Sitting Respiration 19 Pulse 94 Pulse Source Monitor Temp 97.5 F Temp Source Temporal Artery Scan Pulse Oximetry (%) 97 Oxygen Delivery Method Room Air Med/Allergies Allergies & Medications Allergies No Known Allergies Allergy (Verified 02/22/25 09:38) Medication Reconciliation metronidazole 500 mg tablet 500 mg PO BID #14 tabs 02/20/21 [Rx Confirmed 02/22/25] ibuprofen 800 mg tablet 800 mg PO TID PRN pain #30 tabs 04/13/24 [Rx Confirmed 02/22/25] tramadol 25 mg tablet 25 mg PO Q6H PRN 07/29/24 [History Confirmed 02/22/25] meloxicam 7.5 mg tablet 7.5 mg PO QDAY #45 tabs 08/17/24 [Rx Confirmed 02/22/25] Exam Exam Patient is in no acute distress and is cooperative with the examination today. Breathing is nonlabored. Patient has a normal mood and affect. Bilateral extremities were evaluated and demonstrates sensation intact to light touch. Palpable pedal pulses are present. No significant edema is present. Bilateral hips were examined. The patient has no pain with log roll of the hips. Internal rotation to 30 degrees and external rotation to 30 degrees is painless. Negative FADIR. Right knee was examined today. The right knee is in reasonable alignment. Range of motion from 0-120 degrees. Knee is stable to varus and valgus as well as AP translation with <5mm. Patient has a negative McMurrays. There is no pain with patellofemoral compression and no crepitus noted. The knee is nontender to palpation. Left knee was examined today. The left knee is in varus alignment. Range of motion from 0-115 degrees. Knee is stable to varus and valgus as well as AP translation with <5mm. Patient has a negative McMurrays. There is no pain with patellofemoral compression and no crepitus noted. The knee is tender to palpation medially. X-rays demonstrate moderate bilateral joint space narrowing medially. There is moderate arthritis and osteophytes. There is significant arthritis particular on the Catalan view. Assessment and Plan Problem List (1) Arthritis of left knee: Status: Acute Plan: Patient is a 53-year-old female with left knee pain and left knee arthritis. She would like bilateral knee injections today as both knees are hurting Recommend knee cortisone injection as patient would like to proceed with conservative treatment at this time. The risks and benefits of the procedure were reviewed with the patient and patient gave verbal consent to continue with the procedure. Procedure: performed by Dr. Albright Using sterile technique the Right knee was thoroughly prepped with alcohol, and approximately 1 cc of Depo-Medrol 80mg/mL and 4 cc of 0.2% ropivacaine was injected without resistance into the medial tibial femoral joint space. The patient tolerated the procedure. Recommend knee cortisone injection as patient would like to proceed with conservative treatment at this time. The risks and benefits of the procedure were reviewed with the patient and patient gave verbal consent to continue with the procedure. Procedure: performed by Dr. Albright Using sterile technique the left knee was thoroughly prepped with alcohol, and approximately 1 cc of Depo-Medrol 80mg/mL and 4 cc of 0.2% ropivacaine was injected without resistance into the medial tibial femoral joint space. The patient tolerated the procedure. (2) Degenerative arthritis of knee, bilateral: Status: Acute Office Procedures GNS Level of Care Nursing/Assessment Patient Status: Established Patient Nursing Assessment/Reassesment: Medication Reconciliation, Update PMH in EMR and Vital Signs Coordination of Care: Complex Care and Chronic Disease 1-5, Education Complex Pt/Fam, Consent,records obtained, informed consent, Results/Orders obtained and Staff clarify orders Established Patient Charge Established Patient Point Assignment: 95 Established Patient Point Charge: EP Level 3 (80-115) Surgical Proc/IM SQ injection Minor Surgical Procedure: Yes (RIGHT KNEE INJECTION) Medication Given Medication Given Medication Given: Yes Documented Dose Given: 2 Route: Infiitration Medication Given Medication Given Medication Given: Yes Documented Dose Given: 8 Route: Infiitration Office Meds methylprednisolone acetate 80 mg/mL suspension for injection Performing Provider: Minor Albright MD Performing Location: [facility] Administered by: Minor Albright MD on 02/22/25 13:44 Dose Route Admin Location Dispensed Lot Number Expiration Date Package [facility] Insurance [employer] 160 mg intra-articular KNEE 2 mL [id number] 10/28/26 [address]-0 [id number] [employer] ropivacaine (PF) 2 mg/mL (0.2 %) injection solution Performing Provider: Minor Albright MD Performing Location: [facility] Administered by: Minor Albright MD on 02/22/25 13:44 Dose Route Admin Location Dispensed Lot Number Expiration Date Package NDC NDC Insurance Act[employer] 40 mL Infiltration KNEE 40 mL [id number] 04/30/27 71945-169-17 [id number] [facility] Intake Visit Data Collection New Patient or Established: Established Patient (seen at [facility] within 3 years) Reason for Visit:: RIGHT KNEE INJECTION Seen by Clinical Staff ONLY (RN/MA): No Kerfer Machine Operator Required: Yes PCP or OBGYN visit in last 3 months: Yes Hx Now: No Do You Feel Safe at Home: Yes Authorities Contacted: N/A Questionairres Past Medical History Past Medical History Have you ever been diagnosed with any of the following: Cardiology Problems Hypercholesterolemia: Yes Congestive Heart Failure: No Hypertension: Yes Respiratory Problems Chronic Obstructive Pulmonary Disease (COPD): No Asthma: No Smoking: No Smoking Exposure: No Genital/Urinary Problems Renal Disease: No Endocrine Problems Diabetes Mellitus Type 1: No Diabetes Mellitus Type 2: No Blood Problems Sickle Cell Disease: No Subjective Visit Visit for: knee (RIGHT KNEE ) Immunization / Flu Flu Vaccine in the Last 12 Months: Yes Flu Vaccine Exclusion Criteria: Already Received History of Present Illness Chief complaint: BILATERAL KNEE PAIN Date of injury / onset of symptoms: 05/2024 Cherie has been having 3 months of knee pain On the left. The pain has improved with anti-inflammatories. She never had any injections or physical therapy. She is doing well and would like both knees injected today. The injections are lasting about 2 months. Personal History Red flag PMH: none BMI Counceling provided: Yes Pain Pain level (0-10): 6 Pain duration: 05/2024 Pain location: anterior Pain quality: aching Pain timing: night and increases with activity Associated signs & symptoms: weakness and stiffness Ambulatory data Ambulatory device: none Walking distance (minutes): 10 Treatments Number of previous injections: 1 Improvement with previous injections: No Number of Physical Therapy sessions: 2 Improvement with PT: No Improvement with NSAIDS: n/a Review of Systems Review of Systems: All systems negative unless otherwise noted in HPI.
[2025-02-22 09:38] VITALS: BP 130/93; PULSE 94; RESP 19; TEMP 36.4; O2SAT 97; BMI 32.5
== END 2025-02-22 09:56 | disposition home or self-care (01) ==
LOC: HODSRG 08:59
PROVIDERS: PCP Internal Medicine; Referring Provider Internal Medicine; Supervising Provider Orthopaedic Surgery Adult Reconstructive Orthopaedic Surgery; Visit Provider Orthopaedic Surgery Adult Reconstructive Orthopaedic Surgery
DX: M17.0 Bilateral primary osteoarthritis of knee (principal); M25.562 Pain in left knee; I10 Essential (primary) hypertension
CPT/HCPCS: 20610; 99213; J1010; J2795; G0463